=== PATIENT | female | born 1940 | race Caucasian/White ===

== ENCOUNTER 2022-12-06 12:35 | Emergency (ER) | payer MEDICARE ==
[2022-12-06 12:44] VITALS: TEMP 97
[2022-12-06] MEDS ORDERED: ONDANSETRON 4 MG/2 ML VIAL IVP STA ×2 (13:00→14:33)
[2022-12-06] MEDS ORDERED: HYDROmorphone 1 MG/ML 1 ML SYRINGE IVP STA ×2 (13:00→15:42)
--- NOTE | 2022-12-06 14:27 | ED ---
Fall HPI - General Chief Complaint: Fall Stated Complaint: Fall Time Seen by Provider: 12/06/22 12:50 Source: patient, EMS, RN notes reviewed Mode of arrival: EMS - History of Present Illness Initial Comments: This is an 82-year-old female who presents to the emergency department for a fall. States that she tripped and fell, landing on her right arm. She did also hit the right side of her head in the process and has two small wounds. Tetanus vaccine is up to date. She is on Plavix. Unsure if she had any loss of consciousness. The majority of her pain is in the right arm, particularly in the elbow, and states that she is unable to move this. She does still have sensation in the fingertips. Her arm was put in a splint by EMS. Denies any fevers, chills, sore throat, cough, dyspnea, chest pain, palpitations, abdominal pain, nausea, vomiting, diarrhea, or back pain. MD Complaint: fall Fall From: standing - Related Data Previous Rx's Medication Instructions Recorded Metoclopramide [Reglan] 10 mg PO Q6H PRN #30 tab 12/06/22 Ondansetron Odt [Zofran Odt] 4 mg PO Q8HR PRN #30 tab 12/06/22 oxyCODONE-APAP 7.5-325MG [Percocet 1 tab PO Q6HR PRN 3 Days #12 tab 12/06/22 7.5-325 mg] Allergies Allergy/AdvReac Type Severity Reaction Status Date / Time Penicillins Allergy Unknown Verified 12/06/22 12:57 Sulfa (Sulfonamide Allergy Unknown Verified 12/06/22 12:57 Antibiotics) Review of Systems ROS Statement: Those systems with pertinent positive or pertinent negative responses have been documented in the HPI. ROS Other: All systems not noted in ROS Statement are negative. Past Medical History Past Medical History: CVA/TIA, Hypertension, Thyroid Disorder History of Any Multi-Drug Resistant Organisms: None Reported Past Surgical History: No Surgical Hx Reported Past Psychological History: Anxiety Smoking Status: Never smoker Past Alcohol Use History: Rare Past Drug Use History: None Reported General Exam Limitations: no limitations General appearance: alert, in no apparent distress Head exam: Present: other (2 superifical 1 cm lacerations to the right side of the forehead. No active bleeding.) Respiratory exam: Present: normal lung sounds bilaterally. Absent: respiratory distress, wheezes, rales, rhonchi, stridor Cardiovascular Exam: Present: regular rate, normal rhythm, normal heart sounds. Absent: systolic murmur, diastolic murmur, rubs, gallop, clicks Neurological exam: Present: alert, oriented X3, CN II-XII intact Psychiatric exam: Present: normal affect, normal mood Skin exam: Present: warm, dry, intact, normal color. Absent: rash Course Vital Signs 12/06/22 12/06/22 12/06/22 12:38 16:23 17:09 Temperature 97.0 F L Pulse Rate 75 71 82 Respiratory 18 16 18 Rate Blood Pressure 189/82 157/72 159/82 O2 Sat by Pulse 95 96 97 Oximetry 12/06/22 19:20 Temperature Pulse Rate 79 Respiratory 18 Rate Blood Pressure 152/73 O2 Sat by Pulse 97 Oximetry Procedures - Orthopedic Splinting/Casting Injury #1 Side: right Upper Extremity Injury Location: long arm, elbow Upper Extremity Immobilizer: sling/shoulder immobilizer, posterior splint Medical Decision Making - Medical Decision Making This is an 82-year-old female who presents to the emergency department for a fall. Was pt. sent in by a medical professional or institution? @ -No Did you speak to anyone other than the patient for history? @ -No Did you review nursing and triage notes? @ -Yes, and I agree, it is accurate with regards to the patient's symptoms. Were old charts reviewed? @ -No Differential Diagnosis? @ -Differential Diagnosis Head Injury: Contusion, hematoma, intracranial hemorrhage, skull fracture, whiplash, concussion, this is not meant to be an all-inclusive list. EKG interpreted by me (3pts min.)? @ -Not obtained X-rays interpreted by me (1pt min.)? @ -X-ray of the right wrist, forearm, elbow, and humerus obtained. My interpretation identifies a fracture to the right proximal humerus and right olecranon process. CT interpreted by me (1pt min.)? @ -Computed tomography scan of the brain and c-spine obtained. My interpretation identifies no evidence of an acute intracranial hemorrhage, skull fracture, or cervical spine fracture. U/S interpreted by me (1pt. min.)? @ -Not obtained What testing was considered but not performed? (CT, X-rays, U/S, labs)? Why? @ -Not obtained What meds were considered but not given? Why? @ -Not obtained Did you discuss the management of the patient with other professionals? @ -Yes, I first spoke with Loren Kraus with [facility], who advised I speak with production mechanic orthopedic attending, Dr. Feng. Dr. Feng advised a long-arm splint terminating above the elbow with the arm extended just past 90 followed by arm sling placement. He will plan to see her in the office on 12/08. Did you reconcile home meds? @ -No Was smoking cessation discussed for >3mins.? @ -No Was critical care preformed (if so, how long)? @ -No Were there social determinants of health that impacted care today? How? (Homelessness, low income, unemployed, alcoholism, drug addiction, transpo rtation, low edu. Level, literacy, decrease access to med. care, custodial, rehab)? @ -No Was there de-escalation of care discussed even if they declined? (Discuss DNR or withdrawal of care, Hospice)? @ -No What co-morbidities impacted this encounter? (DM, HTN, Smoking, COPD, CAD, Cancer, CVA, Hep., AIDS, mental health diagnosis, sleep apnea, morbid obesity)? @ -Hx of CVA - on Plavix Was patient admitted / discharged? @ -Discharged. XR of the right humerus, forearm, wrist, and elbow obtained revealing a displaced olecranon fracture and right humeral surgical and anatomical fractures. CT scan of the brain and c-spine obtained revealing no acute process. Pain and nausea were controlled in the emergency department. I spoke with Dr. Feng at [facility]. He advised putting her in a long-arm splint that terminates above the elbow with extension of the arm just past 90, followed by placing her in a sling. This was done as instructed. He took down her information and will plan to see her in the office on Tuesday, 12/08. Rx for Percocet, Zofran, and Reglan provided with dosing instructions reviewed. Advised she take the Percocet sparingly when her pain is the most severe, and otherwise take Tylenol. Advised that the Percocet will make her drowsy and she should avoid driving or operating machinery when taking this. She does have to limit her use of NSAIDs due to being on Plavix. She will follow-up with orthopedics on 12/08 as instructed. Undiagnosed new problem with uncertain prognosis? @ -None Drug Therapy requiring intensive monitoring for toxicity (Heparin, Nitro, Insulin, Cardizem)? @ -None Were any procedures done? @ -Yes, she was put in a long arm splint and sling. Diagnosis/symptom? @ -Right proximal humerus fracture, right olecranon fracture Acute, or Chronic, or Acute on Chronic? @ -Acute Uncomplicated (without systemic symptoms) or Complicated (systemic symptoms)? @ -Uncomplicated Side effects of treatment? @ -None Exacerbation, Progression, or Severe Exacerbation] @ -Not applicable Poses a threat to life or bodily function? @ -Yes, this will limit her use of the right arm for the mean time. Return precautions reviewed in depth, the patient is instructed to return to the emergency department with any new, worsening, or concerning symptoms. Patient verbalized understanding. This case was discussed in detail with the attending ED physician, Dr. Barreto. Presentation, findings, and treatment plan discussed in detail as well. - Radiology Data Radiology results: report reviewed, image reviewed Disposition Clinical Impression: Fracture of proximal end of right humerus, Fracture of right olecranon process, Fall Disposition: HOME SELF-CARE Instructions (If sedation given, give patient instructions): Arm Fracture in Adults (ED), Elbow Fracture (ED), How to Use a Sling (ED), Splint Care (ED) Additional Instructions: Return to the emergency department with any new, worsening, or concerning symptoms. You can take the Percocet up to every 6 hours as needed for pain relief. Be aware that this may make you drowsy and you should avoid driving or operating machinery when taking this. You may also take Tylenol instead. Apply ice for 15-20 minutes every 2-3 hours. You can alternate with the Reglan and Zofran as needed for nausea. Contact orthopedics first thing in the morning, they took down your information and will plan to see you on Tuesday, 12/08. Prescriptions: oxyCODONE-APAP 7.5-325MG [Percocet 7.5-325 mg] 1 tab PO Q6HR PRN 3 Days #12 tab PRN Reason: Pain Metoclopramide [Reglan] 10 mg PO Q6H PRN #30 tab PRN Reason: Nausea And Vomiting Ondansetron Odt [Zofran Odt] 4 mg PO Q8HR PRN #30 tab PRN Reason: Nausea And Vomiting Is patient prescribed a controlled substance at d/c from ED?: Yes When asked, does pt state using other controlled substances?: No If prescribed controlled substance>3 days was MAPS reviewed?: Prescribed <3 Days Referrals: None,Stated [Primary Care Provider] - 1-2 days Jose Luis Feng DO [Doctor of Osteopathic Medicine] - 12/08/22
--- NOTE | 2022-12-06 14:53 | CT ---
EXAMINATION TYPE: CT brain manuel wo con DATE OF EXAM: 12/06/2022 COMPARISON: None HISTORY: fall CT DLP: 1336.[address] of the brain was performed. The ventricles, basal cisterns and sulci overlying the cerebral convexities demonstrate mild enlargem ent. There is no evidence for intracranial hemorrhage or sulcal effacement. There is decreased attenuatio n about the periventricular white matter and deep white matter of both cerebral hemispheres, compatib le with chronic small vessel ischemia. No mass effects are seen. If symptoms persist consider MRI. Osseous calvarium is intact. IMPRESSION: 1. Age related atrophic and chronic small vessel ischemic change without acute intracranial process seen at this time. CT Cervical Spine: Unenhanced CT of the cervical spine was performed with bone and soft tissue window settings submitted . Coronal and sagittal reconstruction is obtained. There is normal alignment and prevertebral soft tissues. No evidence for acute cervical fracture . Scattered degenerative disc disease and spondylosis. Biapical scarring. IMPRESSION: 1. No evidence for acute fracture or subluxation of the cervical spine.
[2022-12-06] MEDS ORDERED: METOCLOPRAMIDE 5 MG/ML 2 ML VIAL IVP STA (15:44)
--- NOTE | 2022-12-06 15:47 | XR ---
EXAMINATION TYPE: XR elbow complete RT DATE OF EXAM: 12/06/2022 CLINICAL HISTORY: pain TECHNIQUE: Frontal, lateral and oblique images of the right elbow are obtained. COMPARISON: None. FINDINGS: Displaced olecranon process fracture with displacement of 3.6 mm and mild angulation. No ad ditional fractures are seen with certainty at this time. Pathologic fat pads noted. IMPRESSION: Displaced olecranon process fracture
--- NOTE | 2022-12-06 15:49 | XR ---
EXAMINATION TYPE: XR wrist complete RT DATE OF EXAM: 12/06/2022 CLINICAL HISTORY: pain TECHNIQUE: Frontal, lateral and oblique images of the right wrist are obtained. COMPARISON: None. FINDINGS: There is no acute fracture/dislocation evident. The joint spaces appear within normal limits. The o verlying soft tissue appears unremarkable. IMPRESSION: There is no acute fracture or dislocation seen. ICD 10 NO FRACTURE, INITIAL EVALUATION
--- NOTE | 2022-12-06 15:51 | XR ---
EXAMINATION TYPE: XR humerus RT DATE OF EXAM: 12/06/2022 CLINICAL HISTORY: pain TECHNIQUE: Three views of the right shoulder are obtained. COMPARISON: None FINDINGS: There is limited evaluation of the shoulder. There appears to be a fracture at the surgical and anatomic neck of the right humerus. Displaced olecranon fracture has been on described.No additi onal fractures are seen within the [id number] at this time. IMPRESSION: 1. Fractures of the right humeral surgical and anatomical neck. 2. Previously described olecranon fracture.
--- NOTE | 2022-12-06 15:51 | XR ---
EXAMINATION TYPE: XR forearm RT DATE OF EXAM: 12/06/2022 CLINICAL HISTORY: pain TECHNIQUE: Frontal and lateral images of the right forearm are obtained. COMPARISON: None. FINDINGS: There is no acute fracture/dislocation evident. The joint spaces appear within normal limi ts. Previously described olecranon fracture noted. IMPRESSION: Previously described olecranon fracture noted. No additional fracture seen within the field of view. Soft tissue swelling.
[2022-12-06 17:10] VITALS: RESP 18
[2022-12-06] MEDS ORDERED: SODIUM CHLORIDE 0.9% 1,000 ML IV STA (17:41)
[2022-12-06] MEDS ORDERED: KETOROLAC 15 MG/ML 1 ML VIAL IVP STA (17:41)
[2022-12-06 19:44] VITALS: BP 152/73; PULSE 79
== END 2022-12-06 19:20 | disposition home or self-care (01) ==
LOC: EC 12:35
DX: S42.201A Unspecified fracture of upper end of right humerus, initial encounter for closed fracture (principal); S52.021A Displaced fracture of olecranon process without intraarticular extension of right ulna, initial encounter for closed fracture; I10 Essential (primary) hypertension; Z88.0 Allergy status to penicillin; Z88.1 Allergy status to other antibiotic agents; Z88.2 Allergy status to sulfonamides; Z86.59 Personal history of other mental and behavioral disorders; W01.0XXA Fall on same level from slipping, tripping and stumbling without subsequent striking against object, initial encounter
CPT/HCPCS: 73060; 73080; 73090; 73110; 72125; 70450; 99284; 96374; 96376 ×2; 96375 ×3; 96361 ×2; 29105; J2765; J2405; J1170; J1885